=== PATIENT | female | born 1975 | race Caucasian/White ===

== ENCOUNTER 2022-04-21 09:57 | Outpatient (CLI) | payer BC, SELFPAY ==
[2022-04-21 13:48] LABS: Albumin* 4.3 g/dL (3.3-5.0); Chloride* 108 mmol/L (96-114)
[2022-04-21 13:49] LABS: Potassium* 4.5 mmol/L (3.6-5.1); Sodium* 140 mmol/L (135-149)
[2022-04-21 13:51] LABS: Alkaline Phosphatase* 49 U/L (40-150); Aspartate Amino Transferase* 32 U/L (12-35); Bilirubin Total* 0.5 mg/dL (0.1-1.5); Blood Urea Nitrogen* 8 mg/dL (5-24); Carbon Dioxide* 27 mmol/L (20-32); Cholesterol* 178 mg/dL (90-199); Creatinine* 0.7 mg/dL (0.5-1.5); Estimated Glomerular Filt Rate 109 ml/min; Glucose* 84 mg/dL (60-115); Total Protein* 6.7 g/dL (6.0-8.3)
[2022-04-21 13:52] LABS: Alanine Aminotransferase* 20 U/L (4-35); Calcium* 9.3 mg/dL (8.4-10.6); HDL Cholesterol* 85 mg/dL (>=50); LDL Cholesterol Calculated 80 mg/dL (<100); Triglycerides* 64 mg/dL (40-149)
[2022-04-21 16:02] LABS: Iron* 27 ug/dL (37-170)
[2022-04-21 16:12] LABS: Percent Iron Saturation 6 % (20-50); Total Iron Binding Capacity 434 ug/dL (265-497)
[2022-04-21 23:39] LABS: Vitamin B12* 296 pg/mL (243-894)
== END 2022-04-21 09:58 | disposition home or self-care (01) ==
PROVIDERS: PCP Physician Assistant Medical; Visit Provider Physician Assistant Medical
DX: Z00.00 Encounter for general adult medical examination without abnormal findings (principal); D64.9 Anemia, unspecified; Z13.6 Encounter for screening for cardiovascular disorders
CPT/HCPCS: 80053; 80061; 82607; 83516; 83540; 83550

== ENCOUNTER 2022-07-22 09:00 | Outpatient (CLI) | payer BC, SELFPAY | END 2022-07-22 09:01 | disposition home or self-care (01) | LOC: LKVREF 09:01 | PROVIDERS: PCP Physician Assistant Medical; Visit Provider Physician Assistant Medical | DX: D64.9 Anemia, unspecified (principal); I10 Essential (primary) hypertension | CPT/HCPCS: 83540; 83550 ==

== ENCOUNTER 2022-10-14 15:21 | Outpatient (CLI) | payer BC, SELFPAY ==
--- NOTE | 2022-10-14 15:40 | CRLHL7_ITS ---
For Patients: As a result of the Century Cures Act, medical imaging exams and procedure reports are released immediately into your electronic medical record. You may view this report before your referring provider. If you have questions, please contact your health care provider. BILATERAL SCREENING MAMMOGRAM WITH COMPUTER-AIDED DETECTION AND TOMOSYNTHESIS TECHNIQUE: CC and MLO views were obtained. These mammographic images have been obtained using full-field digital technique. These mammographic images were interpreted with the benefit of computer-aided detection. Breast Tomosynthesis was used in this interpretation. COMPARISON FILM: Baseline. FINDINGS: The breasts are heterogeneously dense, which may obscure small masses IMPRESSION: There is no radiographic evidence for malignancy. ASSESSMENT: BI-RADS Category 1: Negative RECOMMENDATION: Routine screening mammogram in 1 year. A lay language report of this examination will be provided to the patient. Zachary Ramos M.D. Diagnostic/Nuclear Medicine Radiologist [email or web address] ANA/Dictated by: Zachary Ramos MD @ 10/15/2022 10:15:00 AM (Electronically Signed)
== END 2022-10-14 15:22 | disposition home or self-care (01) ==
LOC: MAMMO 15:22
PROVIDERS: PCP Physician Assistant Medical; Visit Provider Physician Assistant Medical
DX: Z12.31 Encounter for screening mammogram for malignant neoplasm of breast (principal); R92.2 Inconclusive mammogram
CPT/HCPCS: 77063; 77067

== ENCOUNTER 2023-08-29 11:17 | Outpatient (CLI) | payer OTHER, SELFPAY | END 2023-08-29 11:18 | disposition home or self-care (01) | PROVIDERS: PCP Physician Assistant Medical; Visit Provider Physician Assistant Medical | DX: I10 Essential (primary) hypertension (principal); Z11.59 Encounter for screening for other viral diseases; Z13.220 Encounter for screening for lipoid disorders; Z13.29 Encounter for screening for other suspected endocrine disorder | CPT/HCPCS: 80053; 80061; 84443; 86703; 86803; 87491; 87591 ==

== ENCOUNTER 2023-09-07 14:38 | Outpatient (CLI) | payer OTHER, SELFPAY ==
--- NOTE | 2023-09-07 15:00 | US_ITS ---
Patient: SELVIN ARRIOLA Facility:?[facility] Patient ID:?[id number] Site Patient ID:?[id number]. Site :?[id number] Study:?US-Pelvis -09/07/2023 3:30:24 PM Ordering Physician:Hattie Shirley Final Report: INDICATION: excessive and frequent menstruation COMPARISON: none TECHNIQUE: 2D osman scale and color Doppler images were acquired of the pelvis using a transabdominal and transvaginal approach. FINDINGS: Sonographic images demonstrate a normal size and smooth outer contour of the uterus. Uterus measures 7.1 cm in length by 5.0 cm in AP diameter by 6.1 cm in transverse dimension. Small intramural leiomyoma within the left side of the uterus measuring 7 x 4 x 6 millimeters. The endometrial lining measures 13 mm in composite thickness. The right ovary measures 3.2 x 2.5 x 2.0 cm in size and the left ovary measures 4.4 x 2.6 x 3.2 cm. The ovaries demonstrate normal arterial and venous blood flow on color Doppler analysis. Simple anechoic cyst left ovary measures 1.7 x 1.2 x 1.8 cm. Complex left ovarian cyst with heterogeneous hypoechoic internal echotexture measuring 2.3 x 1.8 x 2.3 cm. No internal Doppler flow. Additional simple cyst right ovary measuring 1.6 x 1.1 x 1.4 cm. Hypoechoic cyst right ovary measures 1.2 x 1.3 x 1.0 cm. Mild pelvic free fluid IMPRESSION: Endometrial thickness 13 millimeters. No endometrial fluid. Small intramural left-sided fibroid measuring 7 millimeters. Hypoechoic bilateral ovarian cysts without internal Doppler flow consistent with hemorrhagic cysts or endometriomas. Dictated by Sarwat Guadalupe MD @ 09/08/2023 12:47:24 PM Signed by:?Sarwat Guadalupe MD @09/08/2023 12:47:24 PM (Electronic Signature)
== END 2023-09-07 14:39 | disposition home or self-care (01) ==
LOC: US 14:39
PROVIDERS: PCP Physician Assistant Medical; Visit Provider Physician Assistant Medical
DX: N92.0 Excessive and frequent menstruation with regular cycle (principal); R93.89 Abnormal findings on diagnostic imaging of other specified body structures; N83.201 Unspecified ovarian cyst, right side; N83.202 Unspecified ovarian cyst, left side
CPT/HCPCS: 76830; 76856

== ENCOUNTER 2023-11-15 19:05 | Outpatient (CLI) | payer OTHER, SELFPAY ==
--- NOTE | 2023-11-15 19:20 | CRLHL7_ITS ---
For Patients: As a result of the Century Cures Act, medical imaging exams and procedure reports are released immediately into your electronic medical record. You may view this report before your referring provider. If you have questions, please contact your health care provider. BILATERAL SCREENING MAMMOGRAM WITH COMPUTER-AIDED DETECTION AND TOMOSYNTHESIS TECHNIQUE: CC and MLO views were obtained. These mammographic images have been obtained using full-field digital technique. These mammographic images were interpreted with the benefit of computer-aided detection. Breast tomosynthesis was used in this interpretation. COMPARISON FILM: 10/14/22. FINDINGS: The breasts are heterogeneously dense, which may obscure small masses. IMPRESSION: There is no radiographic evidence for malignancy. ASSESSMENT: BI-RADS Category 1: Negative RECOMMENDATION: Routine screening mammogram in 1 year. A lay language report of this examination will be provided to the patient. SARWAT RAMOS M.D. Diagnostic Radiologist [email or web address] Transcribed: 3:[address]/Dictated by: Sarwat Ramos MD @ 11/16/2023 10:05:00 AM (Electronically Signed)
== END 2023-11-15 19:06 | disposition home or self-care (01) ==
LOC: MAMMO 19:05
PROVIDERS: PCP Physician Assistant Medical; Visit Provider Physician Assistant Medical
DX: Z12.31 Encounter for screening mammogram for malignant neoplasm of breast (principal); R92.2 Inconclusive mammogram
CPT/HCPCS: 77063; 77067

== ENCOUNTER 2024-11-02 08:13 | Outpatient (CLI) | payer OTHER, SELFPAY | END 2024-11-02 08:14 | disposition home or self-care (01) | LOC: NFLDREF 11-06 14:16 | PROVIDERS: PCP Physician Assistant Medical; Referring Provider Physician Assistant Medical; Visit Provider Physician Assistant Medical | DX: Z00.00 Encounter for general adult medical examination without abnormal findings (principal); D64.9 Anemia, unspecified; E61.1 Iron deficiency; I10 Essential (primary) hypertension; Z79.899 Other long term (current) drug therapy | CPT/HCPCS: 80053; 80061; 82607; 82728; 82746; 83540; 83550; 84443 ==

== ENCOUNTER 2024-11-21 09:49 | Outpatient (CLI) | payer OTHER, SELFPAY | END 2024-11-21 09:50 | disposition home or self-care (01) | PROVIDERS: PCP Physician Assistant Medical; Visit Provider Physician Assistant Medical | DX: I77.819 Aortic ectasia, unspecified site (principal) | CPT/HCPCS: 93308; 93321; 93325 ==

== ENCOUNTER 2024-12-13 08:21 | Outpatient (CLI) | payer OTHER, SELFPAY | END 2024-12-13 08:22 | disposition home or self-care (01) | LOC: NFLDREF 12-18 12:13 | PROVIDERS: PCP Physician Assistant Medical; Referring Provider Physician Assistant Medical; Visit Provider Physician Assistant Medical | DX: B35.1 Tinea unguium (principal); Z01.84 Encounter for antibody response examination | CPT/HCPCS: 80076; 86735; 86762; 86765 ==

== ENCOUNTER 2025-01-31 07:56 | Outpatient (CLI) | payer OTHER, SELFPAY ==
--- NOTE | 2025-01-31 08:15 | CRLHL7_ITS ---
For Patients: As a result of the Century Cures Act, medical imaging exams and procedure reports are released immediately into your electronic medical record. You may view this report before your referring provider. If you have questions, please contact your health care provider. INDICATION: BILATERAL SCREENING MAMMOGRAM, ASYMPTOMATIC 49 Y/O FEMALE COMPARISON: 11/15/2023, 10/14/2022 TECHNIQUE: Digital mammogram in CC and MLO projections including computer-aided detection (CAD) and tomosynthesis. BREAST COMPOSITION: The breasts are heterogeneously dense, which may obscure small masses. FINDINGS: No suspicious findings. ASSESSMENT: BI-RADS 1 Negative RECOMMENDATION: Annual screening mammogram. A lay language report of this examination will be provided to the patient. Dictated by: Sarwat Guadalupe MD @ 01/31/2025 09:40:35 (Electronically Signed)
== END 2025-01-31 07:57 | disposition home or self-care (01) ==
LOC: MAMMO 07:56
PROVIDERS: PCP Physician Assistant Medical; Visit Provider Physician Assistant Medical
DX: Z12.31 Encounter for screening mammogram for malignant neoplasm of breast (principal); R92.333 Mammographic heterogeneous density, bilateral breasts
CPT/HCPCS: 77063; 77067